=== PATIENT | male | born 1955 | race Caucasian/White ===

== ENCOUNTER → 2019-10-02 16:37 | Outpatient (BNVA) | payer BC, OTHER, SELFPAY | PROVIDERS: Family Provider Nurse Practitioner Family; PCP Internal Medicine; Visit Provider Internal Medicine | DX: I10 Essential (primary) hypertension (principal); E03.9 Hypothyroidism, unspecified; K75.81 Nonalcoholic steatohepatitis (NASH); I25.10 Atherosclerotic heart disease of native coronary artery without angina pectoris; K21.9 Gastro-esophageal reflux disease without esophagitis; E78.5 Hyperlipidemia, unspecified; E29.1 Testicular hypofunction | CPT/HCPCS: 80053; 80061; 83036; 84153; 84403; 84443; 85025 ==

== ENCOUNTER 2020-05-29 08:06 | Outpatient (CLI) | payer OTHER, SELFPAY ==
--- NOTE | 2020-05-29 08:13 | CT_ITS ---
WS: [id number] CT CHEST WITH INTRAVENOUS CONTRAST HISTORY: ASBESTOS EXPOSURE TECHNIQUE: Contiguous 5 mm axial imaging performed on the thorax. Coronal and sagittal reformats are submitted. All CT scans at [facility] use at least one of these dose optimization techniq ues: automated exposure control; mA and/or kV adjustment per patient size (includes targeted exams wh ere dose is matched to clinical indication); or iterative reconstruction. CONTRAST: Omnipaque 300; 95 mL IV. DLP: 1056.92 mGycm COMPARISON: 08/17/2007 Lungs and central airway: Very mild diffuse bilateral interstitial thickening. Distal airways are trudy y slightly prominent. This is not new. Similar findings were seen on the study from 08/16/2017. No pul monary nodule or mass. Pleura: No pleural-based calcifications or masses. Heart and pericardium: Normal size heart. Prior CABG. Mediastinum and lesia: No mediastinum or hilar adenopathy. Vessels: Very mild atherosclerosis aorta. Normal size pulmonary artery. Moderate coronary artery calc ifications. Chest wall and lower neck: No soft tissue mass. Prior median sternotomy. Upper abdomen: Splenic granulomata. There are a few low-attenuation areas in the LEFT lobe of the subha er these low-attenuation nodules were seen in 2007 and probably small stable cysts. Osseous structures: Mild anterior wedging of T3, T4 and T5 from prior compression fractures. CT/CT chest w con* [id number] IMPRESSION: 1. Stable appearance of the lungs since 2007. Very mild peripheral interstitia l thickening with no progression. No bronchiectasis or pneumonia. 2. No pleural calcifications or adenopathy. 3. Prior CABG.
[2020-05-29] MEDS: iohexol 300 mg/mL 100 mL Btl IV (08:41)
== END 2020-05-29 08:07 | disposition home or self-care (01) ==
PROVIDERS: PCP Family Medicine; Visit Provider Family Medicine
DX: Z77.090 Contact with and (suspected) exposure to asbestos (principal); Z95.1 Presence of aortocoronary bypass graft
CPT/HCPCS: 71260; Q9967

== ENCOUNTER 2020-10-06 13:24 | Emergency (ER) | payer OTHER, SELFPAY ==
[2020-10-06 13:55] VITALS: BP 118/74; PULSE 103; RESP 18; TEMP 38; O2SAT 93; BMI 35.1
--- NOTE | 2020-10-06 15:39 | XRR_ITS ---
PROCEDURE INFORMATION: Exam: XR Chest Exam date and time: 10/06/2020 3:39 PM Age: 65 years old Clinical indication: Cough; Additional info: Cough; Fever TECHNIQUE: Imaging protocol: XR of the chest. Views: 1 view. COMPARISON: CT chest w con* [id number] 05/29/2020 8:30 AM FINDINGS: Lungs: The lungs are clear. Pleural spaces: Unremarkable. No pleural effusion. No pneumothorax. Heart/Mediastinum: The heart is normal in size. Changes of CABG are again noted. Bones/joints: Unremarkable. XR/XR chest 1V portable [id number] IMPRESSION: No acute cardiopulmonary abnormality.
--- NOTE | 2020-10-06 15:39 | ECG_ITS ---
[facility] Test Date: 2020-10-06 Pat Name: Selvin Turner Department: Room: Gender: Male Location Manager: : 1955 Requested By: Wilfredo Huggins Order Number: [id number] Reading MD: CAESAR LOUIS Measurements Intervals [place] Rate: 99 P: 34 NC: 179 QRS: 38 QRSD: 91 T: 62 QT: 343 QTc: 441 Interpretive Statements SINUS RHYTHM POSSIBLE LEFT ATRIAL ENLARGEMENT [-0.1mV P WAVE IN V1/V2] NONSPECIFIC T-WAVE ABNORMALITY No previous ECG available for comparison Electronically Signed On 10-07-2020 18:50:00 CDT by CAESAR LOUIS [id number]
--- NOTE | 2020-10-06 15:43 | W.ED.NAVMDI ---
HPI - Nausea/Vomiting/Diarrhea General: Chief complaint: Nausea/Vomiting/Diarrhea Stated complaint: SEVERE DIAARHEA FOR 24HRS Time Seen by Provider: 10/06/20 15:30 Source: patient and family Mode of arrival: ambulatory Limitations: no limitations History of Present Illness: HPI Narrative: Patient states he has had approximately 24 hours of moderate amount of diarrhea, fever, chills, myalgias, arthralgias and mild headache. Patient states he has had sweats on and off for the last 3 weeks. He denies any rash or nuchal rigidity. No photophobia. He has had tick bites recently with last one approximately 4 days ago. He states the ticks were removed fairly quickly. He has had some nausea but no vomiting. Occasional nonproductive cough. He denies exposure to Covid. He reports that he had his Covid vaccine already. Possible history includes coronary disease and hypertension. He states he has had a history of a CABG and coronary stents. He has been taking Pepto-Bismol and Tylenol as needed. His last Tylenol dose was 10 AM today. Other medications include metoprolol 50 mg daily, Lasix 20 mg daily, potassium supplement 20 mEq daily, duloxetine 30 mg, Plavix, atorvastatin MD elicited complaint: nausea and diarrhea Onset (ago): day(s) (Since yesterday) Description of diarrhea: watery and other (No blood in the stool) Associated nausea: Yes Associated abdominal pain: No Quality: aching Exacerbating factors: none Relieving factors: none Context: other (Occasional tick bites) Associated symtoms: Reports cough, diaphoresis, dizziness, fatigue, fevers/chills, headache(s), malaise, myalgias and nausea; Denies anxiety, change in vision, chest pain, dysuria, anorexia, numbness, palpitations, rash, short of breath or syncope Review of Systems Const: Reports: fever(s), chills, body aches, fatigue, malaise and diaphoresis Eyes: Denies: change in vision or blurry vision ENMT: Reports: throat pain (Mild) Card: Denies: chest pain, palpitations, edema or syncope Resp: Reports: non-productive cough (Mild); Denies: dyspnea or wheezing GI: Reports: nausea and diarrhea; Denies: abdominal pain or vomiting : Denies: flank pain, difficulty urinating or dysuria Musc: Reports: other (Diffuse myalgias and arthralgias. No joint swelling); Denies: neck pain or back pain Skin/Breast: Denies: rash or pruritus Neuro: Reports: headache(s) and dizziness; Denies: numbness in extremities or weakness in extremities Psych: Denies: anxiety Justice/Lymph: Denies: enlarged lymph nodes PFSH ED PFSH: Medical History (Updated 10/06/20 @ 17:42 by Wilfredo Enrique MD) CAD (coronary artery disease) Essential (primary) hypertension GERD (gastroesophageal reflux disease) Hyperlipidemia Osteoarthritis of spine Surgical History History of ankle surgery History of coronary artery bypass, five 2006 History of coronary artery stent placement History of foot surgery plantar facsitis 2014- left heel Family History Other Diabetes Heart disease Social History Smoking and tobacco status: never smoked Alcohol intake: current Alcohol intake frequency: holidays/special occasions only Household members: spouse Housing: House Marital status: History of recent travel: No Physical Exam Const: COMMON NORMALS: no acute distress, average body habitus, patient oriented x3, no limitations, alert and well nourished GENERAL APPEARANCE: cooperative HENMT: COMMON NORMALS: normocephalic, atraumatic and Normal external nose present HEAD & SCALP: normal to inspection, normocephalic and atraumatic NOSE: Normal external nose present MOUTH: Normal oral and palatal mucosa present THROAT: posterior oropharynx normal Eye: COMMON NORMALS: Equal, round and reactive pupils present, EOMs intact bilaterally and conjunctivae normal CONJUNCTIVA: Yes conjunctivae normal PUPIL: Yes Equal, round and reactive pupils present OTHER: No photophobia Neck/C-Spine: COMMON NORMALS: full ROM, no lymphadenopathy, supple, no meningeal signs and no JVD Lymph: LYMPHATIC: no lymphadenopathy noted Chest: COMMONS NORMALS: normal inspection of the chest and normal palpation of entire chest wall Resp: COMMON NORMALS: normal respiratory effort, No retractions, No use of accessory muscles and clear to auscultation bilaterally AUSCULTATION: clear to auscultation bilaterally Cardio: COMMON NORMALS: no JVD, regular rate, regular rhythm and Peripheral pulses 2+ throughout RATE: regular rate RHYTHM: regular rhythm PERIPHERAL PULSES: Peripheral pulses 2+ throughout GI: COMMON NORMALS: Normal to inspection, nondistended, normoactive bowel sounds present, Soft to palpation, non-tender, No hepatosplenomegaly present and no masses PALPATION: Yes Soft to palpation and Yes No hepatosplenomegaly present : COMMON NORMALS: Yes no CVA tenderness BLADDER/KIDNEY EXAM: Yes no CVA tenderness Back/Pelvis: COMMON NORMALS: no CVA tenderness Extremity: COMMON NORMALS: normal to inspection, full ROM and capillary refill normal Neuro: COMMON NORMALS: patient oriented x3, CN's II-XII intact bilaterally, moves all extremities, no focal motor deficits and no sensory deficits noted SENSORIUM/ORIENTATION: Yes alert MENINGEAL SIGNS: Yes no meningeal signs Psych: COMMON NORMALS: mental status grossly normal, Normal thought process present, cooperative, normal affect, speech normal and activity/motor behavior normal SPEECH: Yes normal speech THOUGHT PROCESS: Normal thought process present Skin: COMMON NORMALS: no rashes or lesions noted, no wounds, no jaundice, no petechiae and no mottling GENERAL SKIN EXAM: no rashes or lesions noted Course ED course: 1746: pt feeling better. Vital Signs: Vital signs: Vital Signs Temperature 100.4 F H 10/06/20 13:55 Pulse Rate 103 H 10/06/20 13:55 Respiratory Rate 18 10/06/20 13:55 Blood Pressure 118/74 10/06/20 13:55 Pulse Oximetry 93 10/06/20 13:55 MDM - Nausea/Vomiting/Diarrhea Differential Diagnosis: N/V/D differential diagnosis: Likely food poisoning and gastroenteritis (Possible tickborne disease, possible Covid) Lab Data: Attestation: I reviewed the patient's lab results. Labs: Lab Results 10/06/20 10/06/20 10/06/20 Range/Units 15:48 16:15 16:15 WBC 11.4 H (4.0-10.0) 10^3/ uL RBC 4.94 (4.1-5.3) 10^6/u L Hgb 14.8 (11.7-16.6) g/dL Hct 44.9 (42.0-52.0) % MCV 90.9 (80-94) fL MCH 30.0 (28.0-34.0) pg MCHC 33.0 (30.0-36.0) g/dL RDW 13.5 (12.1-15.1) % Plt Count 226 (130-400) 10^3/c mm MPV 10.5 H (7.4-10.4) fL Neut % (Auto) 86.2 % Lymph % (Auto) 9.5 % [place] % (Auto) 3.7 % Eos % (Auto) 0.0 % Baso % (Auto) 0.3 % Neut # (Auto) 9.85 H (1.8-7.7) 10^3/u L Lymph # (Auto) 1.1 (0.8-4.8) 10^3/u L [place] # (Auto) 0.4 (0.2-0.9) 10^3/u L Eos # (Auto) 0.0 (0.0-0.8) 10^3/u L Baso # (Auto) 0.0 (0.0-0.1) 10^3/u L Nucleated RBC % (a uto) 0 % Nucleated RBCs # 0.0 /100WBC Sodium (136-145) mmol/L Potassium (3.5-5.1) mmol/L Chloride (98-107) mmol/L Carbon Dioxide (22-29) mmol/L Anion Gap (5-19) BUN (8-23) mg/dL Creatinine (0.7-1.2) mg/dL GFR Calculation (90-130) mL/min Glucose (65-115) mg/dL Calculated Osmolal ity (285-295) mOsm/k g Calcium (8.5-10.5) mg/dL Total Bilirubin (0.15-1.2) mg/dL AST (0-40) U/L ALT (0-41) U/L Alkaline Phosphata se (40-130) IU/L Total Protein (6.6-8.7) g/dL Albumin (3.5-5.2) g/dL Globulin (1.3-4.6) g/dL Urine Color (Yellow) Urine Appearance (CLEAR) Urine pH (5-7) Ur Specific Gravit y (1.005-1.030) Urine Protein (Negative) Urine Glucose (UA) (Normal) Urine Ketones (Negative) Urine Blood (Negative) Urine Nitrate (Negative) Urine Bilirubin (Negative) Urine Urobilinogen (Negative) mg/dL Ur Leukocyte [place] (Negative) Urine RBC (0-2) /hpf Urine WBC (0-5) /hpf Ur Squamous Epith Cells (0-5) /hpf Amorphous Sediment Urine Bacteria (NONE) /hpf Urine Mucus /hpf Influenza Type A A g Negative (Negative) Influenza Type B A g Negative (Negative) SARS-CoV-2 Ag (Rap id) (Negative) Group A Strep Rapi d Negative (Negative) 10/06/20 10/06/20 10/06/20 Range/Units 16:15 16:25 Unknown WBC (4.0-10.0) 10^3/ uL RBC (4.1-5.3) 10^6/u L Hgb (11.7-16.6) g/dL Hct (42.0-52.0) % MCV (80-94) fL MCH (28.0-34.0) pg MCHC (30.0-36.0) g/dL RDW (12.1-15.1) % Plt Count (130-400) 10^3/c mm MPV (7.4-10.4) fL Neut % (Auto) % Lymph % (Auto) % [place] % (Auto) % Eos % (Auto) % Baso % (Auto) % Neut # (Auto) (1.8-7.7) 10^3/u L Lymph # (Auto) (0.8-4.8) 10^3/u L [place] # (Auto) (0.2-0.9) 10^3/u L Eos # (Auto) (0.0-0.8) 10^3/u L Baso # (Auto) (0.0-0.1) 10^3/u L Nucleated RBC % (a uto) % Nucleated RBCs # /100WBC Sodium 133 L (136-145) mmol/L Potassium 3.8 (3.5-5.1) mmol/L Chloride 98 (98-107) mmol/L Carbon Dioxide 21 L (22-29) mmol/L Anion Gap 17.8 (5-19) BUN 19 (8-23) mg/dL Creatinine 0.8 (0.7-1.2) mg/dL GFR Calculation 97.6 (90-130) mL/min Glucose 122 H (65-115) mg/dL Calculated Osmolal ity 280 L (285-295) mOsm/k g Calcium 8.5 (8.5-10.5) mg/dL Total Bilirubin 0.8 (0.15-1.2) mg/dL AST 20 (0-40) U/L ALT 23 (0-41) U/L Alkaline Phosphata se 46 (40-130) IU/L Total Protein 6.8 (6.6-8.7) g/dL Albumin 4.2 (3.5-5.2) g/dL Globulin 2.6 (1.3-4.6) g/dL Urine Color Yellow (Yellow) Urine Appearance Clear (CLEAR) Urine pH 5 (5-7) Ur Specific Gravit y 1.025 (1.005-1.030) Urine Protein 1+ H (Negative) Urine Glucose (UA) Trace H (Normal) Urine Ketones Negative (Negative) Urine Blood 2+ H (Negative) Urine Nitrate Negative (Negative) Urine Bilirubin Neg (Negative) Urine Urobilinogen Norm (Negative) mg/dL Ur Leukocyte [place] Negative (Negative) Urine RBC 0-4 H (0-2) /hpf Urine WBC None (0-5) /hpf Ur Squamous Epith Cells 0-4 H (0-5) /hpf Amorphous Sediment Not Reportable Urine Bacteria Trace (NONE) /hpf Urine Mucus 1+ /hpf Influenza Type A A g (Negative) Influenza Type B A g (Negative) SARS-CoV-2 Ag (Rap id) Negative (Negative) Group A Strep Rapi d (Negative) Imaging Data^: CXR: Attestation: I personally reviewed and interpreted this imaging study as follows: My impression: Portable chest x-ray shows nothing acute. Previous sternotomy wires. Radiologist's impression: Selvin Turner #: [id number]: [id number]#:[id number]/Sex: 65 / MADM Date: 10/06/20Loc: ERRoom/Bed:Attending Dr: Ordering Provider/Ordering MD: Wilfredo Enrique MD Date of Service: 10/06/20 Procedure(s): XR chest 1V portable [id number] Accession Number(s): [id number] Report Number: [id number] PROCEDURE INFORMATION: Exam: XR Chest Exam date and time: 10/06/2020 3:39 PM Age: 65 years old Clinical indication: Cough; Additional info: Cough; Fever TECHNIQUE: Imaging protocol: XR of the chest. Views: 1 view. COMPARISON: CT chest w con* [id number] 05/29/2020 8:30 AM FINDINGS: Lungs: The lungs are clear. Pleural spaces: Unremarkable. No pleural effusion. No pneumothorax. Heart/Mediastinum: The heart is normal in size. Changes of CABG are again noted. Bones/joints: Unremarkable. XR/XR chest 1V portable [id number] IMPRESSION: No acute cardiopulmonary abnormality. Dictated By:Cb Marvin MDSigned By:Cb Marvin MDSigned Date/Time:10/06/20 1637 Discharge Plan Discharge Patient Disposition: Home Clinical Impression: Rickettsial infection, Diarrhea in adult patient, Fever and chills Nausea & vomiting Qualifiers: Vomiting type: unspecified Vomiting Intractability: non-intractable Qualified Code(s): R11.2 - Nausea with vomiting, unspecified Condition: Stable Prescriptions: New Zofran 4 mg tablet 4 mg PO Q6H PRN (Reason: nausea and vomiting) Qty: 15 RF: 2 doxycycline monohydrate 100 mg capsule 100 mg PO BID 14 Days Qty: 28 RF: 0 No Action clopidogrel [Plavix] 75 mg tablet 75 mg PO DAILY Qty: 30 RF: 11 rosuvastatin 40 mg tablet 40 mg PO DAILY Qty: 30 RF: 11 meloxicam 15 mg tablet 15 mg PO DAILY Qty: 90 RF: 3 furosemide [Lasix] 40 mg tablet 40 mg PO DAILY Qty: 30 RF: 3 duloxetine 60 mg capsule,delayed release(DR/EC) 60 mg PO DAILY Qty: 30 RF: 3 potassium chloride [Klor-Con M20] 20 mEq tablet,ER particles/crystals 20 meq PO DAILY Qty: 30 RF: 11 testosterone cypionate 200 mg/mL oil 200 mg IM Q30D RF: 0 metoprolol tartrate 25 mg tablet 25 mg PO BID RF: 0 Tylenol 325 mg Tablet 325 - 650 mg PO Q4H PRN (Reason: Pain) RF: 0 Pepto-Bismol 262 mg Tablet,Chewable See Rx Instructions .ROUTE .COMPLEX PRN (Reason: stomach issues) RF: 0 Discharge Orders: Discharge ED (Routine); Ordered 10/06/20 Ordered By: Wilfredo Enrique Referrals: Sergio Blevins MD [Primary Care Provider] - Patient Instructions: Diarrhea - Adult, Fever - Adult, Tick Bite (ED), Gastroenteritis (ED), Acute Nausea and Vomiting (ED), Opioid Safety Activity Restrictions/Additional Instructions: Drink plenty of fluids. Start doxycycline antibiotic tomorrow. Return if worse. Coding Level of Care Code ED Radio Survey Worker for Chg Fwd Exam Comprehensive
[2020-10-06 15:57] LABS: Basophils % 0.3 %; Hematocrit 44.9 % (42.0-52.0); Hemoglobin 14.8 g/dL (11.7-16.6); Lymphocytes # 1.1 10^3/uL (0.8-4.8); Lymphocytes % 9.5 %; Mean Corpuscular Volume 90.9 fL (80-94); Mean Platelet Volume 10.5 fL (7.4-10.4); Monocytes # 0.4 10^3/uL (0.2-0.9); Monocytes % 3.7 %; Neutrophils # 9.85 10^3/uL (1.8-7.7); Neutrophils % 86.2 %; Nucleated Red Blood Cells % 0 %; Platelet Count 226 10^3/cmm (130-400); Red Blood Count 4.94 10^6/uL (4.1-5.3); Red Cell Distribution Width 13.5 % (12.1-15.1); White Blood Count 11.4 10^3/uL (4.0-10.0)
[2020-10-06] MEDS: acetaminophen 500 mg Tablet 1000 MG PO (16:31)
[2020-10-06] MEDS: sodium chloride 0.9% 500 ML 1000 ML IV (16:34)
[2020-10-06] MEDS: ondansetron 2 mg/ML SDV 2 mL 4 MG IVP (16:34)
[2020-10-06 16:58] LABS: Rapid Strep A Test Negative (Negative)
[2020-10-06 17:00] LABS: Urine Appearance Clear (CLEAR); Urine Color Yellow (Yellow); pH Urine 5 (5-7)
[2020-10-06 17:01] LABS: Add Urine Culture? No; Bacteria Urine TRACE /hpf; Bilirubin Urine Neg (Negative); Blood Urine 2+ (Negative); Glucose Urine UA Trace (Normal); Ketones Urine Negative (Negative); Leukocyte Esterase Urine Negative (Negative); Mucus Urine 1+ /hpf; Nitrate Urine Negative (Negative); Protein Urine 1+ (Negative); RBC Urine 0-4 /hpf (0-2); Specific Gravity, Urine 1.025 (1.005-1.030); Squamous Epithelial Cell Urine 0-4 /hpf (0-5); Urobilinogen Urine Norm (Negative)
[2020-10-06 17:10] LABS: SARS Covid-2 Antigen Negative (Negative)
[2020-10-06 17:11] LABS: Influenza A by IFA Negative (Negative); Influenza B by IFA Negative (Negative)
[2020-10-06 17:34] LABS: Alanine Aminotransferase 23 U/L (0-41); Albumin Level 4.2 g/dL (3.5-5.2); Alkaline Phosphatase 46 IU/L (40-130); Anion Gap 17.8 (5-19); Aspartate Amino Transferase 20 U/L (0-40); Blood Urea Nitrogen 19 mg/dL (8-23); Calcium 8.5 mg/dL (8.5-10.5); Carbon Dioxide 21 mmol/L (22-29); Chloride 98 mmol/L (98-107); Globulin 2.6 g/dL (1.3-4.6); Glomerular Filtration Rate 97.6 mL/min (90-130); Glucose 122 mg/dL (65-115); Osmolality Calculated 280 mOsm/kg (285-295); Potassium 3.8 mmol/L (3.5-5.1); Sodium 133 mmol/L (136-145); Total Bilirubin 0.8 mg/dL (0.15-1.2); Total Protein 6.8 g/dL (6.6-8.7)
[2020-10-06] MEDS: cefTRIAXone 2,000 MG in sodium chloride 0.9% (plus) 50 ML 100 MG IV (17:59)
[2020-10-06] MEDS: doxycycline 100 mg Tablet PO (18:00)
[2020-10-06 18:45] VITALS: BP 120/71; PULSE 95; RESP 18; TEMP 37.4; O2SAT 99
== END 2020-10-06 18:47 | disposition home or self-care (01) ==
PROVIDERS: Emergency Provider Family Medicine; PCP Family Medicine
DX: A79.9 Rickettsiosis, unspecified (principal); Z79.02 Long term (current) use of antithrombotics/antiplatelets; I25.10 Atherosclerotic heart disease of native coronary artery without angina pectoris; I10 Essential (primary) hypertension; E78.5 Hyperlipidemia, unspecified; Z95.1 Presence of aortocoronary bypass graft; Z20.822 Contact with and (suspected) exposure to COVID-19
CPT/HCPCS: 71045; 80053; 81001; 85025; 87081; 87086; 87426; 87804; 87880; 93005; 96365; 96375; 99283; J0696; J2405; J7050

== ENCOUNTER 2021-02-26 14:37 | Emergency (ER) | payer OTHER, SELFPAY ==
--- NOTE | 2021-02-26 14:42 | CT_ITS ---
WS: [id number] CT HEAD NONCONTRAST HISTORY: severe headache, sudden onset TECHNIQUE: Contiguous axial imaging performed through the brain in 2.5 mm imaging. Bone and soft tiss ue windows. Sagittal and coronal reformats reviewed. All CT scans at [facility] use at least one of these dose optimization techniques: automated exposure control; mA and/or kV adjustment per pa tient size (includes targeted exams where dose is matched to clinical indication); or iterative recon struction. DLP: 964.02 mGy.cm COMPARISON: 06/17/2011 No acute intracranial hemorrhage, midline shift or mass effect. Very mild atrophy and chronic microvascular ischemic disease. Ventricles: Normal size with no hydrocephalus. No inferior displacement of the cerebellar tonsils. Paranasal sinuses: As visualized are clear. Mastoid air cells: Well pneumatized. Calvarium and scalp: Skull is intact with no soft tissue edema or swelling. CT/CT head wo con* [id number] IMPRESSION: 1. No acute intracranial hemorrhage or edema. 2. Mild cerebral atrophy.
[2021-02-26 14:55] VITALS: BP 188/97; PULSE 71; RESP 16; TEMP 36.4; O2SAT 97
--- NOTE | 2021-02-26 15:45 | W.ED.GENADLT ---
HPI - General Adult General: Chief complaint: Headache Stated complaint: SEVERE HEADACHE/SENT FROM FOR CT Time Seen by Provider: 02/26/21 15:12 History of Present Illness: HPI narrative: HPI: [65]yo patient w hx of recent sinus infection x 5 days presenting with b/l frontal headache. Patient reports headache was gradual in onset. On Wednesday, patient in urgent care was prescribed amoxicillin. He took the amoxicillin with some relief headache up until Wednesday when the headache came back. He has no complaints of visual changes, fever/chills, sinus drainage, cough, runny nose or sore throat. denies fever/chill, hx of immunocompromise, HIV, or transplant. The patient denies any focal neurological weakness, vision blindness, diplopia, or eye pain, hoarseness of voice or facial weakness. The patient has had decreased PO intake since the onset of headache symptoms. No family hx of subarachnoid hemorrhage. Denies recent trauma to the head. Pain is unrelieved with OTC medication, ibuprofen or Tylenol. No complaints of chest pain, shortness of breath, palpitations, light-headedness/vertigo/syncope, abdominal pain, or complaints today. Onset: [5]days ago Duration: ongoing Location: home Severity: mild Review of Systems Narrative: Constitutional: No fever, no chills. HEENT: [] +blurriness of vision CV: No chest pain, no palpitations PULM: No productive cough, no dyspnea. GI: No abdominal pain, +N/+V/-D. : No Dysuria MSKEL: No muscle pain SKIN: No new rashes, no lesions. NEURO: + headache, no focal weakness. HEME: No visible bruises PSYCH: Normal mood PFSH ED PFSH: Medical History (Updated 02/26/21 @ 15:44 by Corona Fermin MD) CAD (coronary artery disease) Essential (primary) hypertension GERD (gastroesophageal reflux disease) Hyperlipidemia Osteoarthritis of spine Surgical History History of ankle surgery History of coronary artery bypass, five 2006 History of coronary artery stent placement History of foot surgery plantar facsitis 2014- left heel Family History Other Diabetes Heart disease Social History Smoking and tobacco status: never smoked Alcohol intake: current Alcohol intake frequency: holidays/special occasions only Household members: spouse Housing: House Marital status: History of recent travel: No Physical Exam Narrative: EXAM NARRATIVE: Head: Atraumatic Eyes: PERRL, conjunctiva without injection, eyes tracking ENT: Mucous membrane moist NECK: Supple without lymphadenopathy, no nuchal rigidity LUNGS: LCTAB CV: RRR ABDOMEN: Soft, nontender in all quadrants, no guarding or rebound tenderness, no CVA or flank tenderness bilaterally EXTREMITY: Normal ROM SKIN: No rash or erythema through the whole body NEURO: Mental status: A/Ox3 CN II-XII tested and intact. Sensation intact to sharp/dull differentiation in all extremities. Motor: Normal tone and bulk. No abnormal movements appreciated. No pronator drift. Strength tested and 5/5 in bilateral wrist flexion/extension, elbow flexion/extension, shoulder abduction, straight leg raise, knee flexion/extension, ankle dorsiflexion/plantarflexion. Patient ambulates with a steady gait. Coordination: Finger to nose and heel to fisher testing intact bilaterally. PSYCH: Cooperative mood and affect Procedures Nerve Block Nerve Block 1: Time out performed: Yes Local Anesthetic: lidocaine 1% Amount of anesthesia used (mL): 2 Nerve Blocks: other (splenopalatine nerve block) Procedure Successful: Yes Patient Tolerated Procedure: well Complications: none Additional Comments: Intranasal inhalation of 2ml of lidocaine (1ml in each nostril of 1% w/ epi) under monitoring analyst. Patient tolerated procedure without any issues Course Vital Signs: Vital signs: Vital Signs Temperature 97.6 F 02/26/21 14:55 Pulse Rate 85 02/26/21 20:56 Respiratory Rate 18 02/26/21 20:56 Blood Pressure 166/103 02/26/21 20:56 Pulse Oximetry 95 02/26/21 20:56 MDM - General Adult MDM Narrative: Medical decision making narrative: [65] yo w/ hx of headache and recently treated sinus infection presents with moderate to severe headache. -Fever, -Nausea/-Vomiting, -Neck pain. -Trauma. Afebrile, HDS stable. No focal neurological symptoms. Neuro exam is non-focal. Pt is nontoxic. Based on history and normal neurological exam I do not suspect for intracranial tumor, intracranial bleed, subdural/epidural hematoma, meningitis or intracranial abscess, encephalopathy or encephalitis, temporal arteritis, glaucoma, CO poisoning. Presentation most likely benign headache. Intervention today: IVF, Reglan 10mg, Benadryl 50mg IV, and Magnesium Sulfate 2g IV, decadron 6mg [5:00pm] On reassessment, the patient reports the headache is symptomatically improved with treatment. Neuro exam intact. Patient is able to ambulate and tolerate PO in the ED. Patient received an additional dose of Tylenol 1 g and a sphenopalatine block (see procedure note) improvement of headache from an 8 out of 10 on arrival to a 2 out of 10. The present time, patient elects to go home. He is to be neuro logically intact. I do not suspect that this is subarachnoid bleed given history. No suspicion for meningitis, stroke, complications from sinusitis including intracranial spread, or other acute intracranial pathologies at this time. I have given patient follow up with our embedded case manager to be seen by our outpatient Neurologist Dr. Britton. Patient aware of a call from our embedded case manager to schedule for appointment(s) and verbalizes understanding of the importance of following up. Rx: Tylenol 500mg Q6Hrs x 5 days PRN headache, Zofran PRN nausea/vomiting Disposition: Discharge home with strict return precautions and instructions for prompt primary care follow up. Given referral for Neurology should any headache recur. Given return instructions for any focal deficit, fever/chill, neck pain or any new or concerning symptoms. Lab Data: Labs: Lab Results 02/26/21 02/26/21 16:14 16:14 WBC 10.4 10^3/uL H 10 ^3/uL (4.0-10.0) RBC 5.49 10^6/uL H 10 ^6/uL (4.1-5.3) Hgb 16.3 g/dL g/dL (11.7-16.6) Hct 47.6 % % (42.0-52.0) MCV 86.7 fl fl (80-94) MCH 29.7 pg pg (28.0-34.0) MCHC 34.2 g/dL g/dL (30.0-36.0) RDW 12.9 % % (12.1-15.1) Plt Count 283 10^3/cmm 10^3 /cmm (130-400) MPV 11.2 fL H fL (7.4-10.4) Neut % (Auto) 80.8 % % Lymph % (Auto) 14.5 % % [place] % (Auto) 4.0 % % Eos % (Auto) 0.1 % % Baso % (Auto) 0.3 % % Neut # (Auto) 8.37 10^3/uL H 10 ^3/uL (1.8-7.7) Lymph # (Auto) 1.5 10^3/uL 10^3/ uL (0.8-4.8) [place] # (Auto) 0.4 10^3/uL 10^3/ uL (0.2-0.9) Eos # (Auto) 0.0 10^3/uL 10^3/ uL (0.0-0.8) Baso # (Auto) 0.0 10^3/uL 10^3/ uL (0.0-0.1) Nucleated RBC % (a uto) 0 % % Nucleated RBCs # 0.0 /100WBC /100W BC Sodium 136 mmol/L mmol/L (136-145) Potassium 4.1 mmol/L mmol/L (3.5-5.1) Chloride 100 mmol/L mmol/L (98-107) Carbon Dioxide 19 mmol/L L mmol/ L (22-29) Anion Gap 21.1 H (5-19) BUN 20 mg/dL mg/dL (8-23) Creatinine 0.6 mg/dL L mg/dL (0.7-1.2) GFR Calculation 136.1 mL/min H mL /min (90-130) Glucose 106 mg/dL mg/dL (65-115) Calculated Osmolal ity 285 mOsm/kg mOsm/ kg (285-295) Calcium 8.6 mg/dL mg/dL (8.5-10.5) Imaging Data^: Other Imaging: Radiologist's impression: Jorge [address] [id number] Scan ReportSigned Patient: Selvin Turner #: [id number]: 8Acct#:[id number]/Sex: 65 / MADM Date: 02/26/21Loc: ERRoom/Bed:Attending Dr: Ordering Provider/Ordering MD: Alex Tafoya MD Date of Service: 02/26/21 Procedure(s): CT head wo con* [id number] Accession Number(s): [id number] Report Number: [id number] WS: [id number] CT HEAD NONCONTRAST HISTORY: severe headache, sudden onset TECHNIQUE: Contiguous axial imaging performed through the brain in 2.5 mm imaging. Bone and soft tissue windows. Sagittal and coronal reformats reviewed. All CT scans at [facility] use at least one of these dose optimization techniques: automated exposure control; mA and/or kV adjustment per patient size (includes targeted exams where dose is matched to clinical indication); or iterative reconstruction. DLP: 964.02 mGy.cm COMPARISON: 06/17/2011 No acute intracranial hemorrhage, midline shift or mass effect. Very mild atrophy and chronic microvascular ischemic disease. Ventricles: Normal size with no hydrocephalus. No inferior displacement of the cerebellar tonsils. Paranasal sinuses: As visualized are clear. Mastoid air cells: Well pneumatized. Calvarium and scalp: Skull is intact with no soft tissue edema or swelling. CT/CT head wo con* [id number] IMPRESSION: 1. No acute intracranial hemorrhage or edema. 2. Mild cerebral atrophy. Discharge Plan Discharge Patient Disposition: Home Clinical Impression: Headache, Nausea & vomiting Condition: Stable Prescriptions: New acetaminophen 500 mg tablet 500 mg PO Q6H PRN (Reason: pain) 5 Days Qty: 20 RF: 0 No Action amoxicillin-pot clavulanate [Augmentin] 875-125 mg tablet 1 tab PO BID 7 Days Qty: 14 RF: 0 clopidogrel [Plavix] 75 mg tablet 75 mg PO DAILY Qty: 30 RF: 11 rosuvastatin 40 mg tablet 40 mg PO DAILY Qty: 30 RF: 11 meloxicam 15 mg tablet 15 mg PO DAILY Qty: 90 RF: 3 duloxetine 60 mg capsule,delayed release(DR/EC) 60 mg PO DAILY Qty: 30 RF: 3 potassium chloride [Klor-Con M20] 20 mEq tablet,ER particles/crystals 20 meq PO DAILY Qty: 30 RF: 11 furosemide [Lasix] 40 mg tablet 40 mg PO DAILY Qty: 30 RF: 0 testosterone cypionate 200 mg/mL oil 200 mg IM Q30D RF: 0 metoprolol tartrate 25 mg tablet 25 mg PO BID RF: 0 Tylenol 325 mg Tablet 325 - 650 mg PO Q4H PRN (Reason: Pain) RF: 0 Pepto-Bismol 262 mg Tablet,Chewable See Rx Instructions .ROUTE .COMPLEX PRN (Reason: stomach issues) RF: 0 Zofran 4 mg tablet 4 mg PO Q6H PRN (Reason: nausea and vomiting) Qty: 15 RF: 2 Discharge Orders: Discharge ED (Routine); Ordered 02/26/21 Ordered By: Corona Fermin Referrals: Sergio Blevins MD [Primary Care Provider] - Discharge Diet: Advance as tolerated Discharge Activity: Resume usual activity Patient Instructions: Acute Headache (ED) Activity Restrictions/Additional Instructions: Come back to the emergency room your headache worsens, if any fever chills, nausea/vomiting, focal weakness, or any new concerning complaints. Our embedded case manager will have you follow-up with Dr. Britton in the next few days. You would be expected to have a phone call with our embedded case manager who will put you on the schedule. Coding Level of Care Code ED Mechanical Striper for Dalia Navarro
[2021-02-26 15:58] VITALS: PULSE 78; O2SAT 95
[2021-02-26] MEDS: metoclopramide 5 mg/mL SDV 2 mL 10 MG IVP (16:07)
[2021-02-26] MEDS: ketorolac 30 mg/mL INJ IVP (16:07)
[2021-02-26] MEDS: diphenhydrAMINE 50 mg/mL SDV 1mL IVP (16:07)
[2021-02-26] MEDS: magnesium sulfate premix 2 GM/50 ML PIGGYBACK IV (16:08)
[2021-02-26] MEDS: acetaminophen 500 mg Tablet 1000 MG PO ×2 (16:08→20:32)
[2021-02-26] MEDS: dexamethasone 10 mg/mL INJ 6 MG IVP (16:08)
[2021-02-26] MEDS: sodium chloride 0.9% 1,000 ML 999 ML IV (16:08)
[2021-02-26 17:00] VITALS: BP 168/92; PULSE 76; O2SAT 94
[2021-02-26 19:42] VITALS: BP 152/96; PULSE 86; RESP 18; O2SAT 94
[2021-02-26 20:02] LABS: Basophils % 0.3 %; Eosinophils % 0.1 %; Hematocrit 47.6 % (42.0-52.0); Hemoglobin 16.3 g/dL (11.7-16.6); Lymphocytes # 1.5 10^3/uL (0.8-4.8); Lymphocytes % 14.5 %; Mean Corpuscular HGB Conc 34.2 g/dL (30.0-36.0); Mean Corpuscular Hemoglobin 29.7 pg (28.0-34.0); Mean Corpuscular Volume 86.7 fl (80-94); Mean Platelet Volume 11.2 fL (7.4-10.4); Monocytes # 0.4 10^3/uL (0.2-0.9); Neutrophils # 8.37 10^3/uL (1.8-7.7); Neutrophils % 80.8 %; Nucleated Red Blood Cells % 0 %; Platelet Count 283 10^3/cmm (130-400); Red Blood Count 5.49 10^6/uL (4.1-5.3); Red Cell Distribution Width 12.9 % (12.1-15.1); White Blood Count 10.4 10^3/uL (4.0-10.0)
[2021-02-26 20:13] LABS: Anion Gap 21.1 (5-19); Blood Urea Nitrogen 20 mg/dL (8-23); Calcium 8.6 mg/dL (8.5-10.5); Carbon Dioxide 19 mmol/L (22-29); Chloride 100 mmol/L (98-107); Glomerular Filtration Rate 136.1 mL/min (90-130); Glucose 106 mg/dL (65-115); Osmolality Calculated 285 mOsm/kg (285-295); Potassium 4.1 mmol/L (3.5-5.1); Sodium 136 mmol/L (136-145)
[2021-02-26 20:47] VITALS: BP 181/103; PULSE 84; RESP 16; O2SAT 95
[2021-02-26 20:56] VITALS: BP 166/103; PULSE 85; RESP 18; O2SAT 95
--- NOTE | 2021-03-04 06:10 | DCPLANNER ---
manager hematology had message to schedule a follow up appointment for patient with neurology for headache. manager hematology emailed patients information to the neurology clinic. Patients information will be printed and reviewed. Clinic will call patient with appointment information.
--- NOTE | 2021-03-17 07:08 | DCPLANNER ---
financial compliance manager was contacted by the office of Dr. Britton. financial compliance manager was told that when clinic called patient to schedule an appointment, that patient was busy and that he wanted to call clinic back to schedule an appointment.
== END 2021-02-26 20:59 | disposition home or self-care (01) ==
PROVIDERS: Emergency Provider Emergency Medicine; PCP Family Medicine
DX: R51.9 Headache, unspecified (principal); R11.2 Nausea with vomiting, unspecified; Z79.1 Long term (current) use of non-steroidal anti-inflammatories (NSAID); Z79.02 Long term (current) use of antithrombotics/antiplatelets; I25.10 Atherosclerotic heart disease of native coronary artery without angina pectoris; I10 Essential (primary) hypertension; E78.5 Hyperlipidemia, unspecified
CPT/HCPCS: 64400; 70450; 80048; 85025; 96365; 99284; J1100; J1200; J1885; J2765; J3475; J7030

== ENCOUNTER 2021-07-24 12:59 | Emergency (ER) | payer OTHER, SELFPAY ==
--- NOTE | 2021-07-24 13:06 | XR_ITS ---
WS: [id number] Exam: XR chest 1V portable [id number] Date/Time of Exam: 07/24/2021 1:12 PM Reason For Exam: chest pain Comparison 10/06/2020. The lungs are clear and fully expanded. Heart size is normal. The mediastinum is not widened. Signs o f previous CABG surgery. Regional bony elements are intact. XR/XR chest 1V portable [id number] IMPRESSION: 1. No acute cardiopulmonary finding.
--- NOTE | 2021-07-24 13:06 | ECG_ITS ---
[facility] Test Date: 2021-07-24 Pat Name: Selvin Turner Department: Room: Gender: Male Rehabilitation Manager: : 1955 Requested By: Corona Fermin Order Number: [id number] Reading MD: Kelsy Rivera M.D. Measurements Intervals [place] Rate: 71 P: 72 [place]: 173 QRS: 62 QRSD: 84 T: 35 QT: 374 QTc: 408 Interpretive Statements SINUS RHYTHM POSSIBLE LEFT ATRIAL ENLARGEMENT [-0.1mV P-WAVE IN V1/V2] Compared to ECG 10/06/2020 18:00:25 T-wave abnormality no longer present Electronically Signed On 07-24-2021 16:44:27 CDT by Kelsy Rivera M.D. [id number]
[2021-07-24 14:01] VITALS: BP 152/86; PULSE 68; RESP 16; TEMP 36.7; O2SAT 98; BMI 32.3
--- NOTE | 2021-07-24 15:06 | ECG_ITS ---
[facility] Test Date: 2021-07-24 Pat Name: Selvin Turner Department: Room: Gender: Male Underlay Stitcher: : 1955 Requested By: Corona Fermin Order Number: [id number] Albina MD: Kelsy Rivera M.D. Measurements Intervals [place] Rate: 61 P: 62 [place]: 186 QRS: 58 QRSD: 94 T: 38 QT: 399 QTc: 404 Interpretive Statements SINUS RHYTHM Compared to ECG 07/24/2021 14:05:06 No significant changes Electronically Signed On 07-24-2021 16:46:15 CDT by Kelsy Rivera M.D. [id number]
[2021-07-24 15:25] LABS: Basophils % 0.4 %; Eosinophils % 0.5 %; Hematocrit 46.5 % (42.0-52.0); Hemoglobin 15.4 g/dL (11.7-16.6); Lymphocytes # 1.9 10^3/uL (0.8-4.8); Lymphocytes % 26.1 %; Mean Corpuscular HGB Conc 33.1 g/dL (30.0-36.0); Mean Corpuscular Hemoglobin 30.5 pg (28.0-34.0); Mean Corpuscular Volume 92.1 fl (80-94); Mean Platelet Volume 10.8 fL (7.4-10.4); Monocytes # 0.6 10^3/uL (0.2-0.9); Monocytes % 8.6 %; Neutrophils % 64.1 %; Nucleated Red Blood Cells % 0 %; Platelet Count 238 10^3/cmm (130-400); Red Blood Count 5.05 10^6/uL (4.1-5.3); White Blood Count 7.3 10^3/uL (4.0-10.0)
--- NOTE | 2021-07-24 15:50 | XRR_ITS ---
PROCEDURE INFORMATION: Exam: XR Right Ribs with PA Chest Exam date and time: 07/24/2021 4:00 PM Age: 65 years old Clinical indication: Chest wall pain; Right; Prior surgery; Surgery type: Open heart; Patient HX: --rt. Upper rib pain, PT denies any recent injury; Additional info: Pain/old/new injury TECHNIQUE: Imaging protocol: XR Right ribs with PA chest. Views: 3 views COMPARISON: CR XR chest 1V portable [id number] 07/24/2021 1:13 PM FINDINGS: Lungs: Left mid to lower lobe atelectasis versus infiltrate. Pleural spaces: Unremarkable. No pleural effusion. No pneumothorax. Heart/Mediastinum: Cardiomegaly. Bones/joints: Sternotomy wires. Right posterior possibly 6th and 7th rib fractures. XR/XR ribs RT mn 3V w CXR1V [id number] IMPRESSION: 1. Right posterior possibly 6th and 7th rib fractures. 2. Cardiomegaly. 3. Left mid to lower lobe atelectasis versus infiltrate.
--- NOTE | 2021-07-24 15:50 | W.ED.CHESTPA ---
HPI - Chest Pain General: Chief Complaint: Chest Pain Stated Complaint: chest pain Time Seen by Provider: 07/24/21 15:01 History of Present Illness: 65-year-old male presents emergency department chief complaint of having right-sided chest pain has been ongoing progressively worse last couple of days patient reports having a prior history of both open heart bypass surgery as well as a previous traumatic incident involving multiple rib fractures on the right side of his chest roughly 14 years ago. The patient reports that the pain is worse with deep inspiration as well as with certain movements he reports he is currently building a house he reports about a week ago he fell off the second rung of a ladder onto the ground onto his right side. He reports he did not have any immediate shortness of breath or difficulty breathing or pain at that time just some mild soreness to the right side of his body he reports however recently he has had increased pain with movement of the right arm in which he is having some increased shortness of breath patient reports also prior history of traumatic pneumothorax in the right the patient reports no other associated injuries or issues. Associated symptoms: Deny abdominal pain, dyspnea, fever(s), nausea, palpitations or vomiting Review of Systems General: Reports: 10 or more systems reviewed and unremarkable except in HPI and below Const: Denies: fever(s), chills, fatigue or malaise Eyes: Denies: change in vision or blurry vision Card: Reports: chest pain (Reproducible over the right side); Denies: palpitations Resp: Denies: dyspnea or productive cough GI: Denies: abdominal pain, nausea or vomiting : Denies: flank pain Musc: Denies: extremity pain or extremity swelling Skin/Breast: Denies: rash or pruritus Neuro: Denies: headache(s) Psych: Denies: anxiety or depression Justice/Lymph: Denies: easy bleeding All/Imm: Denies: urticaria, throat swelling or facial swelling [facility] ED PFSH: Medical History (Updated 07/24/21 @ 17:41 by Molina Dickinson) CAD (coronary artery disease) Essential (primary) hypertension GERD (gastroesophageal reflux disease) Hyperlipidemia Osteoarthritis of spine Surgical History History of ankle surgery History of coronary artery bypass, five 2006 History of coronary artery stent placement History of foot surgery plantar facsitis 2014- left heel Family History Other Diabetes Heart disease Social History Smoking and tobacco status: never smoked Alcohol intake: current Alcohol intake frequency: holidays/special occasions only Household members: spouse Housing: House Marital status: History of recent travel: No Physical Exam Const: COMMON NORMALS: no acute distress, patient oriented x3 and healthy appearing HENMT: COMMON NORMALS: normocephalic and atraumatic HEAD & SCALP: normocephalic and atraumatic Eye: COMMON NORMALS: Equal, round and reactive pupils present and EOMs intact bilaterally PUPIL: Yes Equal, round and reactive pupils present Neck/C-Spine: COMMON NORMALS: full ROM, supple and no JVD Lymph: LYMPHATIC: no lymphadenopathy noted Chest: COMMONS NORMALS: normal inspection of the chest (Mild pain located over the right lateral chest wall nothing obviously repro) and normal palpation of entire chest wall Resp: COMMON NORMALS: normal respiratory effort (Equal breath sounds appreciate bilaterally with mild respiratory splinting ), No retractions and clear to auscultation bilaterally EFFORT & INSPECTION: Yes able to speak in complete sentences and Yes symmetric chest movement AUSCULTATION: clear to auscultation bilaterally Cardio: COMMON NORMALS: no JVD, regular rate and regular rhythm RATE: regular rate RHYTHM: regular rhythm GI: COMMON NORMALS: Normal to inspection, nondistended, normoactive bowel sounds present, Soft to palpation and non-tender INSPECTION: Yes normal to inspection PALPATION: Yes Soft to palpation : COMMON NORMALS: Yes no CVA tenderness BLADDER/KIDNEY EXAM: Yes no CVA tenderness Back/Pelvis: COMMON NORMALS: no CVA tenderness Extremity: COMMON NORMALS: normal to inspection and full ROM Neuro: COMMON NORMALS: patient oriented x3, CN's II-XII intact bilaterally, moves all extremities and no focal motor deficits Psych: COMMON NORMALS: mental status grossly normal, Normal thought process present, cooperative and normal affect THOUGHT PROCESS: Normal thought process present Skin: COMMON NORMALS: no rashes or lesions noted GENERAL SKIN EXAM: no rashes or lesions noted Course Vital Signs: Vital signs: Vital Signs Temperature 98.1 F 07/24/21 14:01 Pulse Rate 68 07/24/21 14:01 Respiratory Rate 16 07/24/21 14:01 Blood Pressure 152/86 07/24/21 14:01 Pulse Oximetry 98 07/24/21 14:01 MDM - Chest Pain Medical Decision Making Due to the patient's symptoms and condition X imaging of the ribs and chest will be obtained to the patient's pre-existing history of cardiac we doing a cardiac work-up patient is on Plavix. We will continue to follow. Patient was found to have 2 rib fractures on the right T6 and T7 posterior although this is the main reason for the patient's chest discomfort. Patient was not found to have any underlying pneumothorax or pleural effusion we will continue to follow with patient's cardiac enzymes anticipate discharge home pending second cardiac troponin being negative. Patient is currently pain well controlled Lab Data : 07/24/21 15:10 07/24/21 15:10 Radiology Impressions Chest X-Ray 07/24/21 13:06 IMPRESSION: 1. No acute cardiopulmonary finding. Ribs X-Ray 07/24/21 15:50 IMPRESSION: 1. Right posterior possibly 6th and 7th rib fractures. 2. Cardiomegaly. 3. Left mid to lower lobe atelectasis versus infiltrate. Laboratory Results WBC 7.3 10^3/uL (4.0-10.0) 07/24/21 15:10 RBC 5.05 10^6/uL (4.1-5.3) 07/24/21 15:10 Hgb 15.4 g/dL (11.7-16.6) 07/24/21 15:10 Hct 46.5 % (42.0-52.0) 07/24/21 15:10 MCV 92.1 fl (80-94) 07/24/21 15:10 MCH 30.5 pg (28.0-34.0) 07/24/21 15:10 MCHC 33.1 g/dL (30.0-36.0) 07/24/21 15:10 RDW 13.0 % (12.1-15.1) 07/24/21 15:10 Plt Count 238 10^3/cmm (130-400) 07/24/21 15:10 MPV 10.8 fL (7.4-10.4) H 07/24/21 15:10 Neut % (Auto) 64.1 % 07/24/21 15:10 Lymph % (Auto) 26.1 % 07/24/21 15:10 [place] % (Auto) 8.6 % 07/24/21 15:10 Eos % (Auto) 0.5 % 07/24/21 15:10 Baso % (Auto) 0.4 % 07/24/21 15:10 Neut # (Auto) 4.70 10^3/uL (1.8-7.7) 07/24/21 15:10 Lymph # (Auto) 1.9 10^3/uL (0.8-4.8) 07/24/21 15:10 [place] # (Auto) 0.6 10^3/uL (0.2-0.9) 07/24/21 15:10 Eos # (Auto) 0.0 10^3/uL (0.0-0.8) 07/24/21 15:10 Baso # (Auto) 0.0 10^3/uL (0.0-0.1) 07/24/21 15:10 Nucleated RBC % (auto) 0 % 07/24/21 15:10 Nucleated RBCs # 0.0 /100WBC 07/24/21 15:10 Sodium 137 mmol/L (136-145) 07/24/21 15:10 Sodium Cancelled 07/24/21 15:10 Potassium 4.2 mmol/L (3.5-5.1) 07/24/21 15:10 Potassium Cancelled 07/24/21 15:10 Chloride 102 mmol/L (98-107) 07/24/21 15:10 Chloride Cancelled 07/24/21 15:10 Carbon Dioxide 20 mmol/L (22-29) L 07/24/21 15:10 Carbon Dioxide Cancelled 07/24/21 15:10 Anion Gap 19.2 (5-19) H 07/24/21 15:10 Anion Gap Cancelled 07/24/21 15:10 BUN 17 mg/dL (8-23) 07/24/21 15:10 BUN Cancelled 07/24/21 15:10 Creatinine 0.6 mg/dL (0.7-1.2) L 07/24/21 15:10 Creatinine Cancelled 07/24/21 15:10 GFR Calculation 136.1 mL/min (90-130) H 07/24/21 15:10 GFR Calculation Cancelled 07/24/21 15:10 Glucose 89 mg/dL (65-115) 07/24/21 15:10 Glucose Cancelled 07/24/21 15:10 Calculated Osmolality 285 mOsm/kg (285-295) 07/24/21 15:10 Calculated Osmolality Cancelled 07/24/21 15:10 Calcium 9.1 mg/dL (8.5-10.5) 07/24/21 15:10 Calcium Cancelled 07/24/21 15:10 Total Bilirubin 0.5 mg/dL (0.15-1.2) 07/24/21 15:10 AST 33 U/L (0-40) 07/24/21 15:10 ALT 23 U/L (0-41) 07/24/21 15:10 Alkaline Phosphatase 48 IU/L (40-130) 07/24/21 15:10 Troponin T Baseline 12 ng/L (0-15) 07/24/21 15:10 Troponin T 120 Minute 11.23 ng/L (0-15) 07/24/21 17:05 NT-Pro-B Natriuret Pep 29 pg/mL (0-125) 07/24/21 15:10 Total Protein 7.0 g/dL (6.6-8.7) 07/24/21 15:10 Albumin 4.5 g/dL (3.5-5.2) 07/24/21 15:10 Globulin 2.5 g/dL (1.3-4.6) 07/24/21 15:10 Lipase 26 U/L (13-60) 07/24/21 15:10 Discharge Plan Discharge Clinical Impression: Multiple rib fractures, Right-sided chest pain Condition: Stable Prescriptions: New hydrocodone-acetaminophen 5-325 mg tablet 1 tab PO Q8H PRN (Reason: pain (scale score 7-10)) Qty: 14 0RF No Action clopidogrel [Plavix] 75 mg tablet 75 mg PO DAILY Qty: 30 11RF rosuvastatin 40 mg tablet 40 mg PO DAILY Qty: 30 11RF meloxicam 15 mg tablet 15 mg PO DAILY Qty: 90 3RF duloxetine 60 mg capsule,delayed release(DR/EC) 60 mg PO DAILY Qty: 30 3RF testosterone cypionate 200 mg/mL oil 200 mg IM Q30D 0RF Rx Instructions: take aroud the 14 of each month metoprolol tartrate 25 mg tablet 25 mg PO DAILY 0RF acetaminophen [Tylenol] 325 mg Tablet 325 - 650 mg PO Q4H PRN (Reason: Pain) 0RF bismuth subsalicylate [Pepto-Bismol] 262 mg Tablet,Chewable See Rx Instructions .ROUTE .COMPLEX PRN (Reason: stomach issues) 0RF Rx Instructions: 2 tab orally as needed oxybutynin chloride 5 mg Tablet 5 mg PO BID 0RF tadalafil 10 mg tablet 10 mg PO Q72H PRN (Reason: Erectile Dysfunction) 0RF Discharge Orders: Discharge ED (Routine); Ordered 07/24/21 Ordered By: Molina Dickinson Referrals: Sergio Blevins MD [Primary Care Provider] - 4-7 days Discharge Activity: Increase activity as tolerated Patient Instructions: Chest Pain - Chest Wall, Chest Pain (ED), Rib Fracture (ED), Opioid Safety Activity Restrictions/Additional Instructions: Please follow-up with your primary care doctors in 3 to 5 days, take medications as prescribed using incentive spirometry 4-5 times daily for a period of 2 to 3 minutes minutes this will reduce the likelihood of pneumonia developing please return in the interim if any of your symptoms persist or worse. Coding Level of Care Code ED Furnishings Conservator for Dalia Fwd Exam Comprehensive
[2021-07-24 16:07] LABS: Troponin(5th) Baseline 12 ng/L (0-15)
[2021-07-24] MEDS: ketorolac 30 mg/mL INJ 15 MG IVP (16:17)
[2021-07-24] MEDS: sodium chloride 0.9% 1,000 ML 999 ML IV (16:17)
[2021-07-24 16:23] LABS: Alanine Aminotransferase 23 U/L (0-41); Albumin Level 4.5 g/dL (3.5-5.2); Alkaline Phosphatase 48 IU/L (40-130); Aspartate Amino Transferase 33 U/L (0-40); Blood Urea Nitrogen 17 mg/dL (8-23); Calcium 9.1 mg/dL (8.5-10.5); Carbon Dioxide 20 mmol/L (22-29); Chloride 102 mmol/L (98-107); Globulin 2.5 g/dL (1.3-4.6); Glomerular Filtration Rate 136.1 mL/min (90-130); Glucose 89 mg/dL (65-115); Lipase 26 U/L (13-60); NT Pro B Type Natriuretic Pept 29 pg/mL (0-125); Osmolality Calculated 285 mOsm/kg (285-295); Sodium 137 mmol/L (136-145); Total Bilirubin 0.5 mg/dL (0.15-1.2)
[2021-07-24 16:25] LABS: Anion Gap 19.2 (5-19); Potassium 4.2 mmol/L (3.5-5.1)
[2021-07-24 17:40] LABS: Troponin 5 2HR 11.23 ng/L (0-15)
[2021-07-24 17:48] LABS: Troponin 5 2HR Delta -0.77 ABS# (0-10)
[2021-07-24 18:05] VITALS: PULSE 62; RESP 18; O2SAT 100
[2021-07-24 18:15] VITALS: BP 140/86; PULSE 62; RESP 14; O2SAT 98
== END 2021-07-24 18:13 ==
PROVIDERS: Emergency Medicine; Emergency Provider Emergency Medicine; PCP Family Medicine
DX: S22.41XA Multiple fractures of ribs, right side, initial encounter for closed fracture (principal); W11.XXXA Fall on and from ladder, initial encounter; Z79.02 Long term (current) use of antithrombotics/antiplatelets
CPT/HCPCS: 71045; 71101; 80053; 83690; 83880; 84484; 85025; 93005; 96361; 96374; 99284; J1885; J7030

== ENCOUNTER → 2022-03-03 13:22 | Outpatient (BNVA) | payer OTHER, SELFPAY | PROVIDERS: PCP Family Medicine; Visit Provider Family Medicine | DX: E78.5 Hyperlipidemia, unspecified (principal); I10 Essential (primary) hypertension; I25.10 Atherosclerotic heart disease of native coronary artery without angina pectoris; E34.9 Endocrine disorder, unspecified; G47.33 Obstructive sleep apnea (adult) (pediatric); Z99.89 Dependence on other enabling machines and devices | CPT/HCPCS: 80053; 80061; 84153; 84403; 85025 ==

== ENCOUNTER → 2022-04-13 10:46 | Outpatient (BNVA) | payer OTHER, SELFPAY | PROVIDERS: PCP Family Medicine; Visit Provider Family Medicine | DX: E34.9 Endocrine disorder, unspecified (principal); L57.0 Actinic keratosis; E78.5 Hyperlipidemia, unspecified; I10 Essential (primary) hypertension | CPT/HCPCS: 84403 ==

== ENCOUNTER 2022-05-25 12:00 | Outpatient (CLI) | payer OTHER, SELFPAY | END 2022-05-25 12:01 | disposition home or self-care (01) | LOC: SLEEP 05-27 13:14 | PROVIDERS: PCP Family Medicine; Visit Provider Family Medicine | DX: G47.10 Hypersomnia, unspecified (principal) | CPT/HCPCS: G0399 ==

== ENCOUNTER 2022-07-20 10:22 | Outpatient (CLI) | payer OTHER, SELFPAY ==
--- NOTE | 2022-07-20 13:23 | XR_ITS ---
WS: [id number] Chest 2 views, 07/20/2022 Clinical Data: DYSPHAGIA Comparison: Portable chest, 07/24/2021 Findings: No nodules, masses or effusions are seen. The heart is normal. The pulmonary vascularity is not increased. No pneumonia or pneumothorax is seen. The aortic arch and descending thoracic aorta s how tortuosity. Midline sternotomy sutures and mediastinal radiopacities are noted. XR/XR chest 2V* [id number] Impression: Atherosclerosis.
[2022-07-22 15:45] LABS: Acacia (T9) Class 0; Acacia (T9) IgE <0.10 kU/L; Alternaria Alternata (M6) Ige <0.10 kU/L; Alternaria Class 0; Aspergillus fumigatus <0.10 kU/L; Aspergillus fumigatus Class 0; Bermuda Class 0; Bermuda Grass (G2) Ige <0.10 kU/L; Cat Dander (E1) Ige <0.10 kU/L; Cat Dander Class 0; Cladosporium herbarum <0.10 kU/L; Cladosporium herbarum Class 0; Cockroach 0.16 kU/L; Cockroach Class 0/1; Common Ragweed (Short) (W1) Ig 0.95 kU/L; Cottonwood <0.10 kU/L; Cottonwood Class 0; D. Farinae Class 0; Dermatophagoides Class 0; Dermatophagoides Farinae (D2) <0.10 kU/L; Dermatophagoides Pteronyssinus <0.10 kU/L; Dog Dander (E5) Ige <0.10 kU/L; Dog Dander Class 0; Elm (T8) Ige <0.10 kU/L; Elm Class 0; Immunoglobulin E 198 kU/L (<OR=114); Johnson Grass (G10) Ige <0.10 kU/L; Johnson Grass Cl 0; Mountain cedar Class 0/1; Mouse Urine Proteins <0.10 kU/L; Mouse Urine Proteins Class 0; Mugwort (W6) Class 0; Mugwort (W6) IgE <0.10 kU/L; Oak (T7) Ige <0.10 kU/L; Oak Class 0; Olive Tree (T9) Class 0; Olive Tree (T9) IgE <0.10 kU/L; Penicillium Class 0; Penicillium Notatum (M1) Ige <0.10 kU/L; Perennial Rye Grass (G5) Ige <0.10 kU/L; Perennial Rye Grass Class 0; Ragweeed Class 2; Rough pigweed <0.10 kU/L; Rough pigweed Class 0; Russian Thistle (W11) IgE <0.10 kU/L; Russian Thistle Class 0
== END 2022-07-20 10:23 | disposition home or self-care (01) ==
PROVIDERS: PCP Family Medicine; Visit Provider Specialist
DX: R13.10 Dysphagia, unspecified (principal); J30.89 Other allergic rhinitis
CPT/HCPCS: 71046; 86003

== ENCOUNTER 2022-08-20 08:22 | Outpatient (CLI) | payer OTHER, SELFPAY ==
--- NOTE | 2022-08-20 08:30 | CT_ITS ---
WS: [id number] CT NECK TECHNIQUE: Contrast-enhanced CT of the neck with coronal and sagittal reformatted images. CLINICAL INFORMATION: DYSPHAGIA COMPARISON: None. DLP: 222.[address] scans at [facility] use at least one of these dose optimization techniques: automated e xposure control; mA and/or kV adjustment per patient size (includes targeted exams where dose is matc hed to clinical indication); or iterative reconstruction. FINDINGS: Parotid glands are normal. Normal submandibular glands. Normal posterior nasopharynx. Normal paraphar yngeal fat. No evidence of supraglottic or glottic mass. Normal epiglottis. Airway is patent. Partial ly visualized intracranial contents are normal. Cavernous carotid calcification. Tongue base appears unremarkable. Normal palatine tonsils.Normal thyroid gland. Lung apices are well aerated. Moderate carotid bulb calcification. Moderate spondylitic changes cervical spine. CT/CT neck w con* [id number] IMPRESSION: 1. No evidence of supraglottic or glottic mass. 2. Normal salivary glands. 3. Paranasal sinuses and mastoid air cells well aerated. 4. Moderate spondylitic changes cervical spine. 5. No cervical lymphadenopathy.
--- NOTE | 2022-08-20 08:30 | FL_ITS ---
WS: [id number] Barium swallow and esophagram, 08/20/2022 Clinical Data: DYSPHAGIA Comparison: None. Fluoroscopy time: 1min [id number] # of spot films: 17 Findings: The patient swallowed the thick and thin barium, and it flowed through the hypopharynx without hesita tion. No stricture, mass, polyp or erosion was seen. There was no aspiration or penetration. The barium entered the esophagus and there was normal motility throughout. No hiatal hernia, reflux, stricture, polyp, mass, erosion or ulcer was noted. There are midline sternotomy sutures. FL/FL barium swallow [id number] Impression: Normal esophagram.
[2022-08-20] MEDS: iohexol 350 mg/mL 500 mL Btl (per mL) IV (08:33)
[2022-08-20 09:16] LABS: Blood Urea Nitrogen 14 mg/dL (8-23); Glomerular Filtration Rate 97.3 mL/min (90-130)
== END 2022-08-20 08:23 | disposition home or self-care (01) ==
LOC: RAD 08:26
PROVIDERS: PCP Family Medicine; Visit Provider Specialist
DX: R13.10 Dysphagia, unspecified (principal)
CPT/HCPCS: 70491; 74220; 82565; 84520; Q9967

== ENCOUNTER 2022-10-19 09:16 | Outpatient (CLI) | payer OTHER, SELFPAY ==
--- NOTE | 2022-10-19 09:26 | XR_ITS ---
WS: [id number] Exam: XR ribs RT mn 3V w CXR1V [id number] Date/Time of Exam: 10/19/2022 9:31 AM Reason For Exam: RIB PAIN ON R SIDE There are probable nondisplaced fractures of the posterior lateral right sixth and seventh ribs. No p neumothorax noted. The right lung is fully inflated and clear. Signs of previous CABG surgery. Cardio mediastinal silhouette is otherwise unremarkable. Left lung is clear. XR/XR ribs RT mn 3V w CXR1V [id number] IMPRESSION: 1. Probable nondisplaced fractures of the posterior lateral right sixth and sev enth ribs. No pneumothorax. 2. No acute cardiopulmonary process.
== END 2022-10-19 09:17 | disposition home or self-care (01) ==
LOC: RAD 09:20
PROVIDERS: PCP Family Medicine; Visit Provider Nurse Practitioner Family
DX: R07.81 Pleurodynia (principal)
CPT/HCPCS: 71101

== ENCOUNTER 2023-04-12 15:51 | Outpatient (CLI) | payer OTHER, SELFPAY ==
--- NOTE | 2023-04-12 16:20 | XRR_ITS ---
PROCEDURE INFORMATION: Exam: XR Chest Exam date and time: 04/12/2023 4:25 PM Age: 67 years old Clinical indication: Chest wall pain and right-sided; Prior surgery; Surgery date: 6+ months; Surgery type: Open heart; Additional info: Rib pain TECHNIQUE: Imaging protocol: Radiologic exam of the chest. Views: 2 views. COMPARISON: CR XR ribs RT mn 3V w CXR1V [id number] 19/10/2022 09:31 FINDINGS: Lungs: Shallow inspiration. Mild atelectasis or scarring in the lung bases. No new consolidation. Pleural spaces: Unremarkable. No pleural effusion. No pneumothorax. Heart/Mediastinum: Unremarkable. No cardiomegaly. Bones/joints: Sternotomy wires. Old healed distal right clavicle fracture. Stable thoracic compression fractures. No acute fracture. XR/XR chest 2V* [id number] IMPRESSION: No acute findings.
== END 2023-04-12 15:52 | disposition home or self-care (01) ==
LOC: RAD 15:53
PROVIDERS: PCP Family Medicine; Visit Provider Nurse Practitioner Family
DX: R07.81 Pleurodynia (principal)
CPT/HCPCS: 71046